=== PATIENT | female | born 1990 ===

== ENCOUNTER 2018-04-02 11:40 | Emergency (ER) | payer OTHER ==
--- NOTE | 2018-04-02 12:06 | C.PDOC ---
History Of Present Illness 28 year old female presents to the ED for evaluation of periorbital, facial itch since this morning. Patient reports unknown exposure. Denies history of prior symptoms of similar episodes. Denies body itch, shortness of breath and swelling. PERIORB, FACIAL ITCH SINCE THIE MORNING. UNK EXPOSURE. DENIES HO PRIOR SIM EPISODES. DENIES BODY ITCH, SOB, SWELL EXAM NAD HEENT MILD PERIORB ERYTHEMA W MILD EDEMA. NO ORAL ANGIOEDEMA, STRIDOR LUNGS CTA B/L NO W/R/R Time Seen by Provider: 04/02/18 11:54 History Per: Patient History/Exam Limitations: no limitations Onset/Duration Of Symptoms: Hrs Current Symptoms Are (Timing): Still Present Possible Cause: Unknown Associated Symptoms: Itching Additional History Per: Patient Past Medical History Reviewed: Historical Data, Nursing Documentation, Vital Signs - Medical History PMH: No Chronic Diseases Surgical History: No Surg Hx Family History: States: Unknown Family Hx Review Of Systems Respiratory: Negative for: Shortness of Breath Skin: Positive for: Other (periorbital facial itch) Physical Exam - Physical Exam Appears: Non-toxic, No Acute Distress Skin: Normal Color, Warm, Dry Head: Atraumatic, Normacephalic, Other (mild periorbital erythema wtih mild edema. no oral angioedema, stridor ) Eye(s): bilateral: Normal Inspection Oral Mucosa: Moist Neck: Supple Chest: Symmetrical, No Deformity, No Tenderness Cardiovascular: Rhythm Regular, No Murmur Respiratory: Normal Breath Sounds, No Rales, No Rhonchi, No Wheezing, Other (clear to auscultation bilaterally ) Extremity: Normal ROM, Capillary Refill (less than 2 seconds ) Neurological/Psych: Oriented x3, Normal Speech, Normal Cognition ED Course And Treatment O2 Sat by Pulse Oximetry: 100 (on RA) Pulse Ox Interpretation: Normal Disposition Counseled Patient/Family Regarding: Diagnosis, Need For Followup, Rx Given - Disposition Referrals: [facility] [Outside] [facility] [Outside] Disposition: HOME/ ROUTINE Disposition Time: 12:04 Condition: GOOD Prescriptions: Dexamethasone [Decadron] 12 mg PO ONCE #2 tablet DiphenhydrAMINE [Benadryl] 50 mg PO TID PRN #30 cap PRN Reason: Itching / Pruritus Instructions: Quyen (DC) Forms: Work Excuse Print Language: ESTONIAN - Clinical Impression Clinical Impression: Allergic reaction, Pruritic dermatitis - Scribe Statement The provider has reviewed the documentation as recorded by the Scribe (Shahrzad Lisa) Provider Attestation: All medical record entries made by the Scribe were at my direction and personally dictated by me. I have reviewed the chart and agree that the record accurately reflects my personal performance of the history, physical exam, medical decision making, and the department course for this patient. I have also personally directed, reviewed, and agree with the discharge instructions and d isposition.
[2018-04-02 12:10] VITALS: BP 102/66; PULSE 68; RESP 18; TEMP 98.9; O2SAT 100; BMI 21.1
== END 2018-04-02 12:13 | disposition home or self-care (01) ==
LOC: C.ER 11:40
DX: T78.40XA Allergy, unspecified, initial encounter (principal); L30.8 Other specified dermatitis